=== PATIENT | male | born 1960 | race Caucasian/White ===

== ENCOUNTER 2023-11-22 08:12 | Emergency (ER) | payer OTHER, MEDICARE ==
[~2023-11-22] VITALS: Ht 175.3 cm; Wt 79.4 kg
[2023-11-22] MEDS ORDERED: Diphth,Pertuss(Acell),Tet Vac 0.5 ML VIAL IM ONE (08:25)
[2023-11-22] MEDS ORDERED: CeFAZolin 1000MG in D5W 50 ML IV ONE (09:15)
[2023-11-22] MEDS ORDERED: CeFAZolin Sodium 1,000 MG in NS 50 ML IV ONE (09:15)
[2023-11-22 09:17] LABS: BASOPHILS ABSOLUTE AUTO 0.05 K/mm3 (0.00-0.23); BASOPHILS PERCENT AUTO 1 % (0-2); EOSINOPHILS ABSOLUTE AUTO 0.04 K/mm3 (0.00-0.68); EOSINOPHILS PERCENT AUTO 1 % (0-6); Hematocrit 42.3 % (37.0-53.0); Hemoglobin 15.1 g/dL (13.5-17.5); IMMATURE GRAN ABSOLUTE AUTO 0.11 K/mm3 (0.00-0.10); IMMATURE GRAN PERCENT AUTO 1 % (0-1); LYMPHOCYTES PERCENT AUTO 21 % (21-46); MONOCYTES ABSOLUTE AUTO 0.51 K/mm3 (0.16-1.47); MONOCYTES PERCENT AUTO 6 % (4-13); Mean Corpuscular HGB 33.3 pg (26.0-34.0); Mean Corpuscular HGB Conc 35.7 g/dL (31.5-36.5); Mean Corpuscular Volume 93 fL (80-100); Mean Platelet Volume 10.2 fL (9.1-12.4); NEUTROPHILS ABSOLUTE AUTO 5.93 K/mm3 (1.96-9.15); NEUTROPHILS PERCENT AUTO 70 % (41-73); Platelet Count 279 K/mm3 (150-400); RDW Coefficient Variation 12.4 % (11.7-14.2); RDW Standard Deviation 42.9 fL (35.1-46.3); Red Blood Cell Count 4.53 M/mm3 (4.30-5.90); White Blood Cell Count 8.44 K/mm3 (4.00-11.30)
[2023-11-22 09:42] LABS: Albumin/Globulin Ratio 1.2 (0.8-1.8); Bilirubin, Total 0.6 mg/dL (0.1-1.0); Bun/Creatinine Ratio 10.5 (12.0-20.0); Calcium, Blood 8.8 mg/dL (8.5-10.1); Creatinine, Blood 0.95 mg/dL (0.60-1.20); Globulin, Blood 3.2 g/dL (2.2-4.0); Potassium, Blood 3.9 mmol/L (3.5-5.5); Total Protein, Blood 7.2 g/dL (6.4-8.2)
[2023-11-22] MEDS ORDERED: AMOCLA875 PO (10:07)
[2023-11-22] MEDS ORDERED: Norco 5-325 Ta1 EACH PO (10:07)
== END 2023-11-22 11:23 | disposition home or self-care (01) ==
LOC: ER 08:12
PROVIDERS: Physician Assistant
DX: S02.2XXB Fracture of nasal bones, initial encounter for open fracture (principal); W55.22XA Struck by cow, initial encounter
CPT/HCPCS: 12014; 70450; 70486; 71046; 72125; 80053; 85025; 90471; 90715; 96365-59; 96366-59; 99284-25; J0690